=== PATIENT | male | born 1940 | race African-American/Black ===

== ENCOUNTER → 2017-03-21 | Outpatient (CLI) | payer MEDICARE, MEDICAID ==
[~2017-03-21] MED LIST: ASPI-1035 PO; ATOR20TA PO; CLOP75TA2 PO; FURO-151 PO; HYDR-3511 PO; INSU100I3 SQ; IPRA12.94 IH; IPRA21SP2 NS; LEVO100T9 PO; LEVPEN SQ; LISI10TA5 PO; MELO15TA13 PO; METF10002 PO; NITR0.4T3 SL; PREG75CA PO; RANI-84 PO; SPIR25TA PO; TIOT18CA3 IH
== END | disposition home or self-care (01) ==
LOC: US 08:26
PROVIDERS: ATTEND Internal Medicine Gastroenterology
DX: N28.1 Cyst of kidney, acquired (principal); R16.2 Hepatomegaly with splenomegaly, not elsewhere classified; Z90.49 Acquired absence of other specified parts of digestive tract
CPT/HCPCS: 74010; 76700